=== PATIENT | female | born 1975 | race Caucasian/White ===

== ENCOUNTER 2018-02-25 21:04 | Emergency (ER) | payer OTHER ==
[2018-02-25 21:17] VITALS: BMI 33.6
--- NOTE | 2018-02-25 21:23 | PDOC ---
Rapid Medical Evaluation Chief Complaint: SIRS, Suspected/Possible Time Seen by Provider: 02/25/18 21:19 Medical Evaluation: Allergies Allergy/AdvReac Type Severity Reaction Status Date / Time thiopental [From Pentothal] Allergy Verified 02/25/18 21:18 Vital Signs Temp Pulse Resp BP Pulse Ox 101.2 F H 109 H 16 108/52 L 100 02/25/18 21:14 02/25/18 21:14 02/25/18 21:14 02/25/18 21:14 02/25/18 21:14 02/25/18 21:22 I have performed a brief in-person evaluation of this patient. The patient presents with a chief complaint of: flank pain Pertinent physical exam findings: b/l CVAT. abd SNTND I have ordered the following: labs, urine, ekg The patient will proceed to the ED for further evaluation. Discharge Disposition - Diagnosis Flank pain - Referrals Referrals: Daniel Parry MD [Primary Care Provider] - - Patient Instructions - Post Discharge Activity
[2018-02-25 21:54] LABS: BASO % 0.3 % (0-2.0); HEMATOCRIT 33.3 % (32.4-45.2); HEMOGLOBIN 11.4 GM/dL (10.7-15.3); LYMPH % 7.9 % (8-40); MCH 27.6 pg (25.7-33.7); MCHC 34.3 g/dl (32.0-36.0); MEAN CELL VOLUME 80.4 fl (80-96); MEAN PLT VOLUME 7.9 fl (7.5-11.1); MONO % 4.2 % (3.8-10.2); NEUT % 87.6 % (42.8-82.8); PLATELET COUNT 286 K/MM3 (134-434); RBC 4.13 M/mm3 (3.60-5.2); RDW 14.4 % (11.6-15.6); WHITE BLOOD COUNT 9.7 K/mm3 (4.0-10.0)
--- NOTE | 2018-02-25 22:01 | PDOC ---
History of Present Illness - General History Source: Patient Exam Limitations: No Limitations - History of Present Illness Initial Comments: 02/25/18 23:15 The patient is a 42 year old female with a past medical history of hepatic steatosis here today for evaluation of fever. The patient reports that her fever began 2 days ago and notes associated chills, bilateral lower back pain ( described as a burning sensation), headache, sore throat, lightheadedness, increase in urinary frequency, and a strange smell to her urine. She also reports that her court administrator told that her uterus prolapsed when giving 2 and years ago and was fixed. Patient denies chest pain, shortness of breath. Denies nausea, vomiting, diarrhea, abdominal pain. Allergies: thiopental PCP: Daniel Parry <Terrence Sweeney - Last Filed: 02/25/18 23:15> <Junito Lay - Last Filed: 02/26/18 01:23> - General Chief Complaint: SIRS, Suspected/Possible Stated Complaint: CHILLS FEVER urinary pain Time Seen by Provider: 02/25/18 21:19 Past History <Terrence Sweeney - Last Filed: 02/25/18 23:15> - Past Medical History COPD: No - Reproductive History (#): 3 Para: 0 Cervical CA: No Dysfunctional Uterine Bleeding: No Ectopic : No Endometrial CA: No Polycystic Ovaries: No Therapeutic (s) & number: No Tubal Ligation: No Spontaneous : 2 - Suicide/Smoking/Psychosocial Hx Smoking History: Never smoked Have you smoked in the past 12 months: No Information on smoking cessation initiated: No Hx Alcohol Use: No Drug/Substance Use Hx: No Substance Use Type: None <Junito Lay - Last Filed: 02/26/18 01:23> - Past Medical History Allergies/Adverse Reactions: Allergies Allergy/AdvReac Type Severity Reaction Status Date / Time thiopental [From Pentothal] Allergy Verified 02/25/18 21:18 Home Medications: Ambulatory Orders Vit/Iron Fum/Folic AC [ Tablet] 1 each PO DAILY 10/18/13 Cetirizine HCl [Zyrtec -] 10 mg PO DAILY 07/26/14 Ondansetron [Zofran -] 4 mg PO TID PRN #6 tablet 07/26/14 Ranitidine HCl [Zantac] 150 mg PO DAILY #10 tablet 07/26/14 Simethicone 80 mg PO AC 07/26/14 Sulfamethoxazole/Trimethoprim [Bactrim Ds -] 1 tab PO BID #20 tablet 02/26/18 Review of Systems - Review of Systems Able to Perform ROS?: Yes Comments:: 02/25/18 23:16 CONSTITUTIONAL: +fever. +chills. +lightheadedness. no fatigue EYES: No visual changes ENT: +sore throat. No ear pain CARDIOVASCULAR: No chest pain, no palpitations RESPIRATORY: No cough, no SOB GI: No abdominal pain, no nausea, no vomiting, no constipation, no diarrhea GENITOURINARY: +increase in urinary frequency. No dysuria, no hematuria MUSKULOSKELETAL: +lower back pain. no joint pain, no myalgias SKIN: No rash NEURO: +headache <Terrence Sweeney - Last Filed: 02/25/18 23:15> *Physical Exam - Vital Signs Last Vital Signs Temp Pulse Resp BP Pulse Ox 101.2 F H 109 H 16 108/52 L 100 02/25/18 21:14 02/25/18 21:14 02/25/18 21:14 02/25/18 21:14 02/25/18 21:14 - Physical Exam Comments: 02/25/18 23:18 CONSTITUTIONAL: Well-appearing; well-nourished; in no apparent distress HEAD: Normocephalic; atraumatic EYES: PERRL; EOM intact ENMT: External appears normal; normal oropharynx NECK: Supple; non-tender; no cervical lymphadenopathy CARD: Normal S1, S2; no murmurs, rubs, or gallops RESP: Normal chest excursion with respiration; breath sounds clear and equal bilaterally; no wheezes, rhonchi, or rales ABD: +mild right upper quadrant tenderness. +bilateral flank tenderness. Soft, non-distended; no palpable organomegaly, no palpable hernias EXT: Normal ROM in all four extremities; non-tender to palpation; distal pulses intact SKIN: Warm, dry, no rash NEURO: No focal neurological deficiencies. <Terrence Sweeney - Last Filed: 02/25/18 23:15> - Vital Signs Last Vital Signs Temp Pulse Resp BP Pulse Ox 101.2 F H 109 H 16 108/52 L 100 01/09/19 21:14 02/25/18 21:14 02/25/18 21:14 02/25/18 21:14 02/25/18 21:14 <Junito Lay - Last Filed: 02/26/18 01:23> Moderate Sedation - Procedure Monitoring Vital Signs: Procedure Monitoring Vital Signs Temperature 101.2 F H 02/25/18 21:14 Pulse Rate 109 H 02/25/18 21:14 Respiratory Rate 16 02/25/18 21:14 Blood Pressure 108/52 L 02/25/18 21:14 O2 Sat by Pulse Oximetry (%) 100 02/25/18 21:14 <Terrence Sweeney - Last Filed: 02/25/18 23:15> - Procedure Monitoring Vital Signs: Procedure Monitoring Vital Signs Temperature 101.2 F H 02/25/18 21:14 Pulse Rate 109 H 02/25/18 21:14 Respiratory Rate 16 02/25/18 21:14 Blood Pressure 108/52 L 02/25/18 21:14 O2 Sat by Pulse Oximetry (%) 100 02/25/18 21:14 <Junito Lay - Last Filed: 02/26/18 01:23> ED Treatment Course - LABORATORY CBC & Chemistry Diagram: 02/25/18 21:39 02/25/18 21:41 - ADDITIONAL ORDERS Additional order review: Laboratory Results 02/25/18 02/25/18 02/25/18 21:41 21:39 21:39 PT with INR INR PTT (Actin FS) VBG pH POC VBG pCO2 POC VBG pO2 Mixed VBG HCO3 Sodium 136 Potassium 4.0 Chloride 103 Carbon Dioxide 23 Anion Gap 10 BUN 13 Creatinine 0.7 Creat Clearance w eGFR > 60 Random Glucose 109 H Lactic Acid Calcium 8.2 L Total Bilirubin 0.4 AST 154 H ALT 172 H Alkaline Phosphatase 145 H Troponin I < 0.02 Total Protein 7.2 Albumin 3.4 Urine Color Urine Appearance Urine pH Ur Specific [place] Urine Protein Urine Glucose (UA) Urine Ketones Urine Blood Urine Nitrite Urine Bilirubin Urine Urobilinogen Ur Leukocyte Esterase Urine WBC (Auto) Urine RBC (Auto) Ur Epithelial Cells Urine Bacteria Urine HCG, Qual Negative 02/25/18 02/25/18 02/25/18 21:39 21:39 21:39 PT with INR INR PTT (Actin FS) VBG pH 7.37 POC VBG pCO2 42.7 POC VBG pO2 32.6 Mixed VBG HCO3 24.1 Sodium Potassium Chloride Carbon Dioxide Anion Gap BUN Creatinine Creat Clearance w eGFR Random Glucose Lactic Acid 1.4 Calcium Total Bilirubin AST ALT Alkaline Phosphatase Troponin I Total Protein Albumin Urine Color Straw Urine Appearance Clear Urine pH 6.0 Ur Specific [place] 1.004 L Urine Protein Negative Urine Glucose (UA) Negative Urine Ketones Negative Urine Blood 2+ H Urine Nitrite Negative Urine Bilirubin Negative Urine Urobilinogen Negative Ur Leukocyte Esterase 2+ H D Urine WBC (Auto) 5 Urine RBC (Auto) 1 Ur Epithelial Cells Rare Urine Bacteria Rare Urine HCG, Qual 02/25/18 21:39 PT with INR 14.80 H INR 1.25 H PTT (Actin FS) 34.8 VBG pH POC VBG pCO2 POC VBG pO2 Mixed VBG HCO3 Sodium Potassium Chloride Carbon Dioxide Anion Gap BUN Creatinine Creat Clearance w eGFR Random Glucose Lactic Acid Calcium Total Bilirubin AST ALT Alkaline Phosphatase Troponin I Total Protein Albumin Urine Color Urine Appearance Urine pH Ur Specific [place] Urine Protein Urine Glucose (UA) Urine Ketones Urine Blood Urine Nitrite Urine Bilirubin Urine Urobilinogen Ur Leukocyte Esterase Urine WBC (Auto) Urine RBC (Auto) Ur Epithelial Cells Urine Bacteria Urine HCG, Qual 02/25/18 21:39 RBC 4.13 MCV 80.4 MCHC 34.3 RDW 14.4 D MPV 7.9 Neutrophils % 87.6 H D Lymphocytes % 7.9 L D Monocytes % 4.2 Eosinophils % 0.0 D Basophils % 0.3 - Medications Given in the ED: ED Medications Discontinued Medications Generic Name Dose Route Start Last Admin Trade Name Raj PRN Reason Stop Dose Admin Acetaminophen 975 mg 02/25/18 23:01 02/25/18 23:12 Tylenol - PO 02/25/18 23:02 975 mg ONCE ONE Administration <Terrence Sweeney - Last Filed: 02/25/18 23:15> - LABORATORY CBC & Chemistry Diagram: 02/25/18 21:39 02/25/18 21:41 - ADDITIONAL ORDERS Additional order review: Laboratory Results 02/25/18 21:39 Urine HCG, Qual Negative 02/25/18 21:39 RBC 4.13 MCV 80.4 MCHC 34.3 RDW 14.4 D MPV 7.9 Neutrophils % 87.6 H D Lymphocytes % 7.9 L D Monocytes % 4.2 Eosinophils % 0.0 D Basophils % 0.3 <Junito Lay - Last Filed: 02/26/18 01:23> Medical Decision Making - Medical Decision Making 02/26/18 01:00 Patient is morbidly obese 42-year-old female who presents to the ER with atraumatic bilateral flank and lower back pain, fever, chills and urinary frequency with urgency. Patient is noted to be febrile and tachycardic and initial evaluation. There is no evidence of meningismus. Lungs are clear. Chest x-ray reveals no evidence of infiltrate or effusion. Patient's influenza negative. CBC reveals no significant leukocytosis, neutrophilia is noted. CMP reveals elevated AST/ALT and alkaline phosphatase consistent with patient's history of hepatic steatosis. Bilateral renal and right upper quadrant ultrasound reveals no evidence of hydronephrosis or cholelithiasis. Hepatomegaly is noted. Urinalysis reveals 2+ leuk esterase and 5 WBCs per high- power field. I suspect acute pyelonephritis. Patient is being hydrated and will receive 2 g of IV ceftriaxone. Patient tolerates by mouth and is safe for outpatient treatment with by mouth Bactrim twice a day for 10 days. <Junito Lay - Last Filed: 02/26/18 01:23> *DC/Admit/Observation/Transfer - Attestations Scribe Attestion: 02/25/18 23:20 Documentation prepared by GWENDOLYN Coppola, acting as product manager medical device for Junito Lay MD. <Terrence Sweeney - Last Filed: 02/25/18 23:15> - Attestations Physician Attestion: 02/26/18 00:56 The documentation was prepared by the scribe under my direct supervision. I have reviewed the documentation which correctly represents the findings, medical decision-making and critical action taken by me. <Junito Lay - Last Filed: 02/26/18 01:23> Diagnosis at time of Disposition: Flank pain, Pyelonephritis - Discharge Dispostion Disposition: HOME Condition at time of disposition: Stable - Referrals Referrals: Daniel Parry MD [Primary Care Provider] - - Patient Instructions Printed Discharge Instructions: DI for Fever (Symptom) -- Adult, DI for Kidney Infection Print Language: [place] - Post Discharge Activity
[2018-02-25 22:03] LABS: VENOUS PC02 42.7 mmHg (38-52); VENOUS PH 7.37 (7.32-7.42); VENOUS PO2 32.6 mmHg (28-48)
[2018-02-25 22:04] LABS: URINE APPEARANCE CLEAR; URINE BILIRUBIN NEGATIVE (<2.0 mg/dL); URINE COLOR STRAW; URINE GLUCOSE (UA) NEGATIVE (NEGATIVE); URINE KETONE NEGATIVE (NEGATIVE); URINE LEUK ESTERASE 2+ (NEGATIVE); URINE NITRITE NEGATIVE (NEGATIVE); URINE PROTEIN NEGATIVE (NEGATIVE); URINE UROBILINOGEN NEGATIVE mg/dL (0.2-1.0)
[2018-02-25 22:05] LABS: EPI CELLS RARE /HPF (FEW); URINE BACTERIA RARE /hpf (NONE SEEN)
[2018-02-25 22:11] LABS: INR 1.25 (0.83-1.09); PROTHROMBIN TIME (PATIENT) 14.8 SEC (9.7-13.0)
[2018-02-25 22:14] LABS: ACTIVATED PTT 34.8 SECONDS (25.2-36.5)
[2018-02-25 22:32] LABS: ALBUMIN 3.4 g/dl (3.4-5.0); ALK PHOS 145 U/L (45-117); ANION GAP 10 MMOL/L (8-16); BILIRUBIN,TOTAL 0.4 mg/dL (0.2-1); BLOOD UREA NITROGEN 13 mg/dL (7-18); CALCIUM 8.2 mg/dL (8.5-10.1); CHLORIDE 103 mmol/L (98-107); CO2 23 mmol/L (21-32); CREATININE 0.7 mg/dL (0.55-1.3); GLUCOSE,RANDOM 109 mg/dL (74-106); SGOT/AST 154 U/L (15-37); SGPT/ALT 172 U/L (13-61); SODIUM 136 mmol/L (136-145); TOT PROT 7.2 g/dl (6.4-8.2)
[2018-02-25] MEDS ORDERED: SODIUM CHLORIDE 1,000 ML IV STA (23:01)
[2018-02-25] MEDS ORDERED: ACETAMINOPHEN 500 MG TABLET (FP) PO ONE (23:01)
[2018-02-25] MEDS ORDERED: ACETAMINOPHEN 325 MG TABLET (FP) ONE (23:03)
[2018-02-26] MEDS ORDERED: CEFTRIAXONE 2,000 MG in DEXTROSE 5%-WATER - 50 ML IVPB ONE (00:46)
[2018-02-26] MEDS ORDERED: CEFTRIAXONE 2 GM/100 ML BAG IVPB ONE (01:01)
[2018-02-26 01:22] VITALS: PULSE 84; TEMP 98.6
[2018-02-26 02:38] VITALS: BP 110/66
--- NOTE | 2018-02-26 12:46 | EKG ---
Test Reason : Blood Pressure : / mmHG Vent. Rate : 103 BPM Atrial Rate : 103 BPM P-R Int : 136 ms QRS Dur : 078 ms QT Int : 320 ms P-R-T Axes : 062 049 050 degrees QTc Int : 419 ms SINUS TACHYCARDIA OTHERWISE NORMAL ECG NO PREVIOUS ECGS AVAILABLE Confirmed by LONG HERNDON MD ([id number]) on 02/26/2018 12:45:47 PM Referred By: Confirmed By:LONG HERNDON MD
== END 2018-02-26 02:49 | disposition home or self-care (01) ==
LOC: JER 21:04
PROC: 3E0337Z Introduction of Electrolytic and Water Balance Substance into Peripheral Vein, Percutaneous Approach (ICD-10-PCS; principal; 2018-02-25)
PROC: 3E03329 Introduction of Other Anti-infective into Peripheral Vein, Percutaneous Approach (ICD-10-PCS; 2018-02-25)
DX: N12 Tubulo-interstitial nephritis, not specified as acute or chronic (principal)
CPT/HCPCS: 36415; 71046-TC-FY; 76705-TC; 76775-TC; 80053; 81003; 81015; 82803; 83605; 84484; 84703; 85025; 85610; 85730; 87040; 87086; 87804; 93005; 93010; 99283-25; J7030

== ENCOUNTER 2018-04-22 04:55 | Day surgery (SDC) | payer OTHER ==
[2018-04-20 15:56] VITALS: BMI 33.2
[2018-04-22] MEDS ORDERED: LACTATED RINGERS SOLUTION 1,000 ML IV SCH ×2 (07:15→12:45)
--- NOTE | 2018-04-22 07:15 | HP ---
History & Physical Update - History History: No Change - Physical Physical: No Change - Assessment Assessment: No Change - Plan Plan: No Change (Agree with H&P from 04/20/18)
[2018-04-22] MEDS ORDERED: PROPOFOL 20 ML ONE ×2 (11:47)
[2018-04-22] MEDS ORDERED: SUCCINYLCHOLINE CHLORIDE 200 MG/10 ML VIAL ONE (11:47)
[2018-04-22] MEDS ORDERED: MIDAZOLAM HCL 2 MG/2 ML SINGLE DOSE VIAL ONE (12:06)
--- NOTE | 2018-04-22 12:39 | OP ---
Operative Note - Note: Operative Date: 04/22/18 Pre-Operative Diagnosis: AUB, cervical polyp noted on ultrasound Operation: hyteroscopy, D&C, cervical polypectomy (external cervical polyp) Findings: ectocervical polyp at the cervicovaginal junction no intracavitary lesions noted Post-Operative Diagnosis: Same as Pre-op Surgeon: Marlen Paige Anesthesiologist/YARDING ENGINEER: Juan F Marsh Anesthesia: General (with LMA) Specimens Removed: endometrial curettings. (ecto)cervical polyp Estimated Blood Loss (mls): 10 Operative Report Dictated: Yes
[2018-04-22] MEDS ORDERED: ONDANSETRON 4 MG/2 ML VIAL IVPUSH PRN (12:41)
[2018-04-22] MEDS ORDERED: oxyCODONE HCL 5 MG TABLET PO PRN (12:41)
[2018-04-22] MEDS ORDERED: ONDANSETRON 4 MG/2 ML VIAL ONE (14:24)
[2018-04-22 14:51] VITALS: TEMP 98.1
[2018-04-22 17:36] VITALS: BP 114/69; PULSE 76
--- NOTE | 2018-04-23 17:46 | PATH ---
Surgical Pathology Report Patient Name: AMY MEJIA [facility]. Rec. #: [id number] /Age/Gender: 1975 (Age: 42) / F Account: [id number] Location: [facility] SURGICAL Taken: 04/22/2018 Received: 04/22/2018 Reported: 04/23/2018 Physicians: Marlen Paige M.D. Specimen(s) Received A: ENDOMETRIAL CURETTINGS B: CERVICAL POLYP Clinical History Abnormal uterine bleeding Final Diagnosis A. ENDOMETRIAL CURETTINGS, DILATION AND CURETTAGE: FRAGMENTS OF SECRETORY ENDOMETRIUM. B. 'CERVICAL POLYP', BIOPSY: POLYPOID FRAGMENT OF BENIGN CERVICAL SQUAMOUS MUCOSA AND UNDERLYING STROMA WITH CAUTERY ARTIFACT. Electronically Signed Paige Murillo M.D. Gross Description A. Received in formalin labeled "endometrial curetting," is a 1.5 x 1.5 x 0.2 cm aggregate of shaw-pink soft tissue fragments. The formalin is filtered and the specimen is entirely submitted in one cassette. B. Received in formalin labeled "cervical polyp," is a 1.0 cm in greatest dimension shaw, polypoid portion of soft tissue. The specimen is submitted in toto in one cassette. 04/22/2018 saudi04/22/2018
--- NOTE | 2018-04-30 10:49 | OP ---
DATE OF OPERATION: 04/22/2018 PREOPERATIVE DIAGNOSIS: Abnormal uterine bleeding, cervical polyp. POSTOPERATIVE DIAGNOSIS: Abnormal uterine bleeding, cervical polyp. PROCEDURE: Dilation and curettage and cervical polypectomy of external cervical polyp. FINDINGS: SURGEON: Marlen Paige DO ANESTHESIA: LMA ESTIMATED BLOOD LOSS: 10 mL. FINDINGS: Ectocervical polyp at the cervicovaginal junction. No intracavitary or intra uterine lesions noted. SURGEON: Marlen Paige DO ANESTHESIA: General with LMA by Dr. Juan F Marsh. COMPLICATIONS: None. ESTIMATED BLOOD LOSS: 10 mL. SPECIMENS: Endometrial curettings and ectocervical polyp. Sponge and instrument count correct. DISPOSITION: Stable to PACU. BRIEF HISTORY: The patient is a 42-year-old female who had been seen in the office with complaints of abnormal uterine bleeding. Upon ultrasound examination was found to have a possible endocervical polyp. The patient was counseled on her options and elected to undergo a hysteroscopy and resection of the polyp. Consents for the procedure were signed in the office. The patient was then admitted to [facility] on April 22, 2018. Consents were reconfirmed. She was then taken back to the operating room and given general anesthesia with LMA by Dr. Juan F Marsh and placed in the dorsal lithotomy position. A hard time-out was performed. A speculum was placed inside the vagina. The anterior lip of the cervix was grasped with a tenaculum, and the cervix was dilated to accommodate a diagnostic hysteroscope, which was advanced to the fundus of the uterus. Bilateral tubal ostia were noted. No intracavitary lesions were appreciated. No intracervical lesions were appreciated, and a sharp dilation and curettage was performed, and endometrial curettings were sent to Pathology at this time. Upon further inspection of the cervix and vagina, there was a polyp at the cervicovaginal junction outside of the uterine cavity, which was excised and sent to Pathology for further evaluation. Excellent hemostasis was achieved after excision using the Bovie cautery. Minimal bleeding was noted from the cervical os. All instruments were removed from the vagina and sponge and instrument counts were reported to be correct. The patient was awoken from anesthesia and recovering in stable condition after the procedure. MARLEN PAIGE DO /[id number] MTDD
== END 2018-04-22 16:20 | disposition home or self-care (01) ==
LOC: JASU-SURG 04:55
PROVIDERS: ATTEND Obstetrics & Gynecology
PROC: 0UJD8ZZ Inspection of Uterus and Cervix, Via Natural or Artificial Opening Endoscopic (ICD-10-PCS; 2018-04-22)
PROC: 0UBC7ZZ Excision of Cervix, Via Natural or Artificial Opening (ICD-10-PCS; principal; 2018-04-22 11:30)
PROC: 0UDB7ZX Extraction of Endometrium, Via Natural or Artificial Opening, Diagnostic (ICD-10-PCS; 2018-04-22 11:30)
DX: N93.9 Abnormal uterine and vaginal bleeding, unspecified (principal); N84.1 Polyp of cervix uteri
CPT/HCPCS: 88305-TC; 94760

== ENCOUNTER 2018-06-01 15:05 | Emergency (ER) | payer OTHER ==
--- NOTE | 2018-06-01 15:20 | PDOC ---
Rapid Medical Evaluation Time Seen by Provider: 06/01/18 15:19 Medical Evaluation: Allergies Allergy/AdvReac Type Severity Reaction Status Date / Time thiopental [From Pentothal] Allergy Verified 02/25/18 21:18 06/01/18 15:19 I have performed a brief in-person evaluation of this patient. The patient presents with a chief complaint of: atraumatic lower back Pertinent physical exam findings: No bony tenderness. I have ordered the following: urine The patient will proceed to the ED for further evaluation. Discharge Disposition - Diagnosis Back pain - Referrals - Patient Instructions - Post Discharge Activity
[2018-06-01 15:21] VITALS: BP 132/96; PULSE 88; TEMP 98.7; BMI 33.2
[2018-06-01 16:11] LABS: PH,URINE 6.5 (5.0-8.0); URINE APPEARANCE CLEAR; URINE BILIRUBIN NEGATIVE (NEGATIVE); URINE COLOR YELLOW; URINE GLUCOSE (UA) NEGATIVE (NEGATIVE); URINE KETONE NEGATIVE (NEGATIVE); URINE LEUK ESTERASE NEGATIVE (NEGATIVE); URINE NITRITE NEGATIVE (NEGATIVE); URINE PROTEIN NEGATIVE (NEGATIVE); URINE UROBILINOGEN 0.2 mg/dL (0.2-1.0)
[2018-06-01 16:13] LABS: HCG,QUALITATIVE URINE Negative
[2018-06-01] MEDS ORDERED: KETOROLAC TROMETHAMINE 60 MG/2 ML VIAL IM ONE (16:16)
--- NOTE | 2018-06-01 16:19 | PDOC ---
History of Present Illness - General Chief Complaint: Back Pain Stated Complaint: LOWER BACK PAIN Time Seen by Provider: 06/01/18 15:19 - History of Present Illness Initial Comments: 06/01/18 16:17 42-year-old female without comorbidities presents for evaluation of lower back pain with posterior lateral by leg radicular symptoms to the levels of the thighs. No loss of bowel or bladder function or saddle paresthesias. Systemic symptoms. Past History - Past Medical History Allergies/Adverse Reactions: Allergies Allergy/AdvReac Type Severity Reaction Status Date / Time thiopental [From Pentothal] Allergy Verified 06/01/18 15:21 Home Medications: Ambulatory Orders Cyclobenzaprine HCl [Flexeril 10 mg] 10 mg PO HS PRN #10 tablet 06/01/18 Methylprednisolone [Medrol Dose Lamin] 4 mg PO ASDIR #21 tablet 06/01/18 Anemia: No Asthma: No Cancer: No Cardiac Disorders: No CVA: No COPD: No CHF: No Dementia: No Diabetes: No GI Disorders: No Disorders: Yes (POLYNEPHRITIS) HTN: No Hypercholesterolemia: No Liver Disease: No Seizures: No Thyroid Disease: No - Reproductive History (#): 3 Para: 0 Cervical CA: No Dysfunctional Uterine Bleeding: No Ectopic : No Endometrial CA: No Polycystic Ovaries: No Therapeutic (s) & number: No Tubal Ligation: No Spontaneous : 2 - Suicide/Smoking/Psychosocial Hx Smoking History: Never smoked Have you smoked in the past 12 months: No Information on smoking cessation initiated: No Hx Alcohol Use: No Drug/Substance Use Hx: No Substance Use Type: None Review of Systems - Review of Systems Constitutional: No: Fever Musculoskeletal: Yes: Back Pain Neurological: Yes: See HPI, Tingling *Physical Exam - Vital Signs Last Vital Signs Temp Pulse Resp BP Pulse Ox 98.7 F 88 17 132/96 98 06/01/18 15:19 06/01/18 15:19 06/01/18 15:19 06/01/18 15:19 06/01/18 15:19 - Physical Exam Comments: 06/01/18 16:17 Lumbar spine skin color and temperature are normal. Range of motion is decreased. There is tenderness about the right left paralumbar musculature. No midline tenderness. 5 out of 5 strength in bilateral lower extremities without gross sensorimotor deficits. Positive straight leg raise test bilaterally she is neurovascularly intact. Thighs and calves are soft and nontender. ED Treatment Course - ADDITIONAL ORDERS Additional order review: Laboratory Results 06/01/18 16:00 Urine Color Yellow Urine Appearance Clear Urine pH 6.5 Ur Specific [place] 1.014 Urine Protein Negative Urine Glucose (UA) Negative Urine Ketones Negative Urine Blood Negative Urine Nitrite Negative Urine Bilirubin Negative Urine Urobilinogen 0.2 Ur Leukocyte Esterase Negative Urine HCG, Qual Negative Medical Decision Making - Medical Decision Making 06/01/18 16:18 Toradol in the ER for lumbar radiculopathy. Begin Medrol Dosepak tomorrow with Flexeril and follow-up with orthospine *DC/Admit/Observation/Transfer Diagnosis at time of Disposition: Back pain, Lumbar radiculopathy - Discharge Dispostion Disposition: HOME Condition at time of disposition: Stable Decision to Admit order: No - Referrals Referrals: Daniel Parry MD [Primary Care Provider] - Parmjit Stone MD [Staff Physician] - - Patient Instructions Printed Discharge Instructions: Lumbar Radiculopathy, DI for Lumbar Radiculopathy Additional Instructions: Please begin the Medrol Dosepak tomorrow morning as directed. The muscle relaxers one tablet before bedtime and will make you sleepy. He may begin that this evening. Do not take any Advil Aleve ibuprofen or Motrin while on the Medrol Dosepak. He may take Tylenol as directed if you need supplemental pain medication. Please follow-up with orthopedic spine surgery in 1-2 days for further evaluation and treatment options and return to the emergency room should symptoms worsen. - Post Discharge Activity
== END 2018-06-01 16:45 | disposition home or self-care (01) ==
LOC: JERFT 15:05
PROC: 3E0233Z Introduction of Anti-inflammatory into Muscle, Percutaneous Approach (ICD-10-PCS; principal; 2018-06-01)
DX: M54.16 Radiculopathy, lumbar region (principal)
CPT/HCPCS: 81003; 84703; 87086; 96372; 99281-25

== ENCOUNTER 2018-12-24 08:22 | Day surgery (SDC) | payer OTHER ==
[2018-12-23 11:18] VITALS: BMI 33.2
[2018-12-24 10:17] VITALS: TEMP 98.2
[2018-12-24 11:23] VITALS: BP 109/56; PULSE 64
== END 2018-12-24 11:24 | disposition home or self-care (01) ==
LOC: JASU-ENDO 08:22
PROVIDERS: ATTEND Internal Medicine Gastroenterology
PROC: 0DJD8ZZ Inspection of Lower Intestinal Tract, Via Natural or Artificial Opening Endoscopic (ICD-10-PCS; principal; 2018-12-24 08:45)
DX: D50.9 Iron deficiency anemia, unspecified (principal); K57.30 Diverticulosis of large intestine without perforation or abscess without bleeding; K64.8 Other hemorrhoids
CPT/HCPCS: 81025

== ENCOUNTER 2019-01-05 08:23 | Day surgery (SDC) | payer OTHER ==
[2019-01-05 07:33] VITALS: BMI 33.2
[2019-01-05 09:36] VITALS: TEMP 98
[2019-01-05 11:26] VITALS: BP 105/67; PULSE 77
--- NOTE | 2019-01-06 13:25 | PATH ---
Surgical Pathology Report Patient Name: AMY MEJIA [facility]. Rec. #: [id number] /Age/Gender: 1975 (Age: 43) / F Account: [id number] Location: [facility] Taken: 01/05/2019 Received: 01/05/2019 Reported: 01/06/2019 Physicians: Geoff Baptiste D.O. Specimen(s) Received A: ANTRUM NODULE B: STOMACH BODY Clinical History Anemia, unspecified Postoperative diagnosis: Gastritis Final Diagnosis A. STOMACH, ANTRUM, NODULE, BIOPSY: POLYPOID GASTRIC ANTRAL MUCOSA WITH SEVERE CHRONIC ACTIVE GASTRITIS. IMMUNOHISTOCHEMICAL STAIN FOR H. PYLORI IS POSITIVE (MANY). B. STOMACH, BODY, BIOPSY: GASTRIC BODY MUCOSA WITH SEVERE CHRONIC ACTIVE GASTRITIS. IMMUNOHISTOCHEMICAL STAIN FOR H. PYLORI IS POSITIVE (NUMEROUS). Electronically Signed Paige Murillo M.D. Gross Description A. Received in formalin, labeled "antrum nodule" is a shaw, irregular portion of soft tissue measuring 0.4 cm. in greatest dimension. The specimen is submitted in toto in one cassette. B. Received in formalin, labeled "body of stomach" are 2 shaw, irregular portions of soft tissue measuring 0.2 and 0.5 cm. in greatest dimension. The specimens are submitted in toto in one cassette. 01/05/2019 saudi01/05/2019
== END 2019-01-05 11:00 | disposition home or self-care (01) ==
LOC: JASU-ENDO 08:23
PROVIDERS: ATTEND Internal Medicine Gastroenterology
PROC: 0DB68ZX Excision of Stomach, Via Natural or Artificial Opening Endoscopic, Diagnostic (ICD-10-PCS; principal; 2019-01-05 09:00)
DX: D50.9 Iron deficiency anemia, unspecified (principal); K31.7 Polyp of stomach and duodenum; K29.50 Unspecified chronic gastritis without bleeding
CPT/HCPCS: 81025; 88305-TC; 88342-TC

== ENCOUNTER 2019-12-21 19:42 | Emergency (ER) | payer OTHER ==
[2019-12-21 20:00] VITALS: BP 113/69; PULSE 92; TEMP 98.6; BMI 34.3
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
== END 2019-12-21 20:29 | disposition home or self-care (01) ==
LOC: JER 19:42 → JERFT 19:42
DX: S16.1XXA Strain of muscle, fascia and tendon at neck level, initial encounter (principal); S29.012A Strain of muscle and tendon of back wall of thorax, initial encounter; S80.01XA Contusion of right knee, initial encounter
CPT/HCPCS: 99283-25

== ENCOUNTER 2019-12-31 15:28 | Emergency (ER) | payer OTHER ==
[2019-12-31 15:53] VITALS: BP 127/62; PULSE 92; TEMP 97.8; BMI 33.2
== END 2019-12-31 16:54 | disposition home or self-care (01) ==
LOC: JERFT 15:28
DX: S16.1XXA Strain of muscle, fascia and tendon at neck level, initial encounter (principal); M25.511 Pain in right shoulder
CPT/HCPCS: 99283-25

== ENCOUNTER 2020-06-27 08:37 | Day surgery (SDC) | payer OTHER ==
[2020-06-27] MEDS ORDERED: FERRIC CARBOXYMALTOSE 750 MG in SODIUM CHLORIDE 250 ML IVPB ONE (09:30)
[2020-06-27 10:37] VITALS: TEMP 98.7
[2020-06-27 10:59] VITALS: BP 110/54; PULSE 70
== END 2020-06-27 15:54 | disposition home or self-care (01) ==
LOC: FINFUSION 08:37 → FM/S 08:38 → FINFUSION 15:54
PROVIDERS: ATTEND Family Medicine
PROC: 3E033GC Introduction of Other Therapeutic Substance into Peripheral Vein, Percutaneous Approach (ICD-10-PCS; principal; 2020-06-27)
DX: E61.1 Iron deficiency (principal)
CPT/HCPCS: 96365; J1439

== ENCOUNTER 2020-07-05 13:33 | Day surgery (SDC) | payer OTHER ==
[2020-07-05] MEDS ORDERED: FERRIC CARBOXYMALTOSE 750 MG in SODIUM CHLORIDE 250 ML IVPB ONE (14:15)
[2020-07-05 14:59] VITALS: PULSE 74; TEMP 98.2
[2020-07-05 15:40] VITALS: BP 110/72
== END 2020-07-05 16:01 | disposition home or self-care (01) ==
LOC: FINFUSION 13:33 → FM/S 13:39 → FINFUSION 16:01
PROVIDERS: ATTEND Family Medicine
PROC: 3E033GC Introduction of Other Therapeutic Substance into Peripheral Vein, Percutaneous Approach (ICD-10-PCS; principal; 2020-07-05)
DX: E61.1 Iron deficiency (principal)
CPT/HCPCS: 84703; 96365; J1439

== ENCOUNTER 2020-12-11 06:07 | Emergency (ER) | payer OTHER ==
[2020-12-11 06:48] VITALS: BP 114/67; PULSE 82; TEMP 99.1; BMI 33.2
== END 2020-12-11 08:15 | disposition home or self-care (01) ==
LOC: JER 06:07
DX: R05.1 Acute cough (principal); J02.9 Acute pharyngitis, unspecified; J06.9 Acute upper respiratory infection, unspecified
CPT/HCPCS: 99282-25

== ENCOUNTER 2021-04-25 11:13 | Day surgery (SDC) | payer OTHER ==
[2021-04-25] MEDS ORDERED: FERRIC CARBOXYMALTOSE 750 MG in SODIUM CHLORIDE 250 ML IVPB ONE (12:45)
[2021-04-25 14:25] VITALS: BP 104/60; PULSE 74; TEMP 98.2
== END 2021-04-25 15:21 | disposition home or self-care (01) ==
LOC: FINFUSION 11:13 → FM/S 11:27 → FINFUSION 15:21
PROVIDERS: ATTEND Family Medicine
PROC: 3E033GC Introduction of Other Therapeutic Substance into Peripheral Vein, Percutaneous Approach (ICD-10-PCS; principal; 2021-04-25)
DX: D50.9 Iron deficiency anemia, unspecified (principal)
CPT/HCPCS: 96365; J1439

== ENCOUNTER 2021-05-02 11:12 | Day surgery (SDC) | payer OTHER ==
[2021-05-02] MEDS ORDERED: FERRIC CARBOXYMALTOSE 750 MG in SODIUM CHLORIDE 250 ML IVPB ONE (12:30)
[2021-05-02 13:17] VITALS: BP 115/65; PULSE 68; TEMP 98
== END 2021-05-02 14:08 | disposition home or self-care (01) ==
LOC: FINFUSION 11:12 → FM/S 11:13 → FINFUSION 14:08
PROVIDERS: ATTEND Family Medicine
PROC: 3E033GC Introduction of Other Therapeutic Substance into Peripheral Vein, Percutaneous Approach (ICD-10-PCS; principal; 2021-05-02)
DX: D50.9 Iron deficiency anemia, unspecified (principal)
CPT/HCPCS: 96365; J1439

== ENCOUNTER 2021-07-09 04:36 | Inpatient (IN) | payer OTHER ==
[2021-07-04 11:01] VITALS: BMI 35.1
[2021-07-09] MEDS ORDERED: ceFAZolin SODIUM 1 GM VIAL ONE ×3 (06:42→22:08)
[2021-07-09] MEDS ORDERED: GABAPENTIN 300 MG CAPSULE PO ONE (07:30)
[2021-07-09] MEDS ORDERED: ACETAMINOPHEN 1000 MG/100 ML BAG IVPB ONE ×3 (07:30→11:47)
[2021-07-09] MEDS ORDERED: CEFAZOLIN 2 GM in DEXTROSE 5%-WATER - 100 ML IVPB ONE (07:30)
[2021-07-09] MEDS ORDERED: TRANEXAMIC ACID 1000 MG/10 ML VIAL IVPUSH ONE (07:30)
[2021-07-09] MEDS ORDERED: PHENAZOPYRIDINE HCL 100 MG TABLET (FP) PO ONE (07:30)
[2021-07-09] MEDS ORDERED: ceFAZolin SODIUM 1 GM VIAL IVPB ONE (08:21)
[2021-07-09] MEDS ORDERED: ONDANSETRON 4 MG/2 ML VIAL IVPUSH PRN ×3 (10:12→11:47)
[2021-07-09] MEDS ORDERED: PROMETHAZINE HCL 25 MG/1 ML VIAL IVPUSH PRN ×2 (10:12→11:47)
[2021-07-09] MEDS ORDERED: oxyCODONE HCL 5 MG TABLET PO PRN ×7 (10:12→11:47)
[2021-07-09] MEDS ORDERED: KETOROLAC TROMETHAMINE 30 MG/1 ML VIAL IVPUSH SCH ×2 (10:15→16:15)
[2021-07-09] MEDS ORDERED: BISACODYL 5 MG TABLET.DR (FP) PO PRN ×2 (10:21→11:47)
[2021-07-09] MEDS ORDERED: ACETAMINOPHEN 325 MG TABLET (FP) PO PRN ×3 (10:21→18:00)
[2021-07-09] MEDS ORDERED: DOCUSATE SODIUM 100 MG CAPSULE (FP) PO PRN ×2 (10:21→11:47)
[2021-07-09] MEDS ORDERED: SIMETHICONE 80 MG TAB.CHEW (FP) PO PRN (10:21)
[2021-07-09] MEDS ORDERED: IBUPROFEN 800 MG/8 ML IJ IVPB SCH (10:30)
[2021-07-09] MEDS ORDERED: FENTANYL CITRATE/PF 50 MCG/ML VIAL ONE (10:35)
[2021-07-09] MEDS ORDERED: ACETAMINOPHEN INJECTION 100 ML IVPB ONE (10:51)
[2021-07-09] MEDS ORDERED: ZOLPIDEM TARTRATE 5 MG TABLET PO ONE ×2 (11:00→22:00)
[2021-07-09] MEDS: SODIUM CHLORIDE 1,000 ML IV SCH (12:55)
[2021-07-09] MEDS ORDERED: DEXTROSE 5%-WATER - 50 ML IVPB ONE ×2 (16:25→22:08)
[2021-07-09] MEDS: CEFAZOLIN 1 GM in DEXTROSE 5%-WATER - 1 GM/50 ML IVPB IVPB SCH ×2 (16:39→23:05)
[2021-07-09] MEDS: IBUPROFEN 800 MG/8 ML IJ IVPB SCH (17:42)
[2021-07-09] MEDS ORDERED: CEFAZOLIN 1 GM/D5W 1 GM/50 ML BAG IVPB SCH (18:00)
[2021-07-09 18:01] LABS: HEMATOCRIT 33.4 % (32.4-45.2); HEMOGLOBIN 11.3 GM/dL (10.7-15.3); MCH 29.1 pg (25.7-33.7); MCHC 33.8 g/dl (32.0-36.0); MEAN CELL VOLUME 85.8 fl (80-96); MEAN PLT VOLUME 7.6 fl (7.5-11.1); PLATELET COUNT 293 10^3/uL (134-434); RBC 3.89 M/mm3 (3.60-5.2); RDW 17.7 % (11.6-15.6)
[2021-07-09 18:22] LABS: CALCIUM 8.3 mg/dL (8.5-10.1)
[2021-07-09 18:26] LABS: CREATININE 0.7 mg/dL (0.55-1.3)
[2021-07-09] MEDS: oxyCODONE HCL 5 MG TABLET PO PRN (20:27)
[2021-07-09] MEDS: SIMETHICONE 80 MG TAB.CHEW (FP) PO PRN (20:29)
[2021-07-10] MEDS: IBUPROFEN 800 MG/8 ML IJ IVPB SCH ×3 (01:39→18:35)
[2021-07-10] MEDS: oxyCODONE HCL 5 MG TABLET PO PRN (06:33)
[2021-07-10 07:53] LABS: HEMATOCRIT 30.4 % (32.4-45.2); HEMOGLOBIN 10.1 GM/dL (10.7-15.3); MCH 28.6 pg (25.7-33.7); MCHC 33.1 g/dl (32.0-36.0); MEAN CELL VOLUME 86.4 fl (80-96); PLATELET COUNT 263 10^3/uL (134-434); RBC 3.52 M/mm3 (3.60-5.2); RDW 17.7 % (11.6-15.6); WHITE BLOOD COUNT 8.9 K/mm3 (4.0-10.0)
[2021-07-10 08:14] LABS: CALCIUM 8.3 mg/dL (8.5-10.1)
[2021-07-10 08:15] LABS: BLOOD UREA NITROGEN 8.4 mg/dL (7-18)
[2021-07-10 08:18] LABS: CREATININE 0.5 mg/dL (0.55-1.3)
[2021-07-10] MEDS ORDERED: ENOXAPARIN NA (PORCINE) 40 MG/0.4 ML DISP.SYRIN SQ SCH (10:00)
[2021-07-10] MEDS: ENOXAPARIN NA (PORCINE) 40 MG/0.4 ML DISP.SYRIN SQ SCH (10:01)
[2021-07-10] MEDS: SIMETHICONE 80 MG TAB.CHEW (FP) PO PRN (10:01)
[2021-07-10] MEDS: SODIUM CHLORIDE 1,000 ML IV SCH (19:11)
[2021-07-11] MEDS: IBUPROFEN 800 MG/8 ML IJ IVPB SCH ×2 (02:54→10:16)
[2021-07-11 08:57] LABS: BASO % 0.7 % (0-2.0); EOS % 1.4 % (0-4.5); HEMATOCRIT 30.5 % (32.4-45.2); HEMOGLOBIN 10.1 GM/dL (10.7-15.3); LYMPH % 38.2 % (8-40); MCH 29.1 pg (25.7-33.7); MCHC 33.2 g/dl (32.0-36.0); MEAN CELL VOLUME 87.6 fl (80-96); MEAN PLT VOLUME 7.9 fl (7.5-11.1); MONO % 5.3 % (3.8-10.2); NEUT % 54.4 % (42.8-82.8); PLATELET COUNT 276 10^3/uL (134-434); RBC 3.48 M/mm3 (3.60-5.2); RDW 17.5 % (11.6-15.6); WHITE BLOOD COUNT 6.3 K/mm3 (4.0-10.0)
[2021-07-11 10:13] LABS: CALCIUM 8.2 mg/dL (8.5-10.1)
[2021-07-11 10:14] LABS: BLOOD UREA NITROGEN 8.3 mg/dL (7-18)
[2021-07-11 10:16] LABS: CREATININE 0.5 mg/dL (0.55-1.3)
[2021-07-11] MEDS: SIMETHICONE 80 MG TAB.CHEW (FP) PO PRN (10:16)
[2021-07-11] MEDS: ENOXAPARIN NA (PORCINE) 40 MG/0.4 ML DISP.SYRIN SQ SCH (10:22)
[2021-07-11 13:34] VITALS: BP 110/72; PULSE 74; TEMP 98.2
== END 2021-07-11 13:20 | disposition home or self-care (01) | DRG 519 ==
LOC: JASUSAT 04:36 → J3W 13:16 → JASUSAT 13:17 → J3W 13:17
PROVIDERS: ADMIT Obstetrics & Gynecology; ATTEND Obstetrics & Gynecology
PROC: 0DBW4ZZ Excision of Peritoneum, Percutaneous Endoscopic Approach (ICD-10-PCS; 2021-07-09)
PROC: 8E0W8CZ Robotic Assisted Procedure of Trunk Region, Via Natural or Artificial Opening Endoscopic (ICD-10-PCS; 2021-07-09)
PROC: 0UT94ZZ Resection of Uterus, Percutaneous Endoscopic Approach (ICD-10-PCS; principal; 2021-07-09 07:30)
PROC: 0UT74ZZ Resection of Bilateral Fallopian Tubes, Percutaneous Endoscopic Approach (ICD-10-PCS; 2021-07-09 07:30)
DX: D25.9 Leiomyoma of uterus, unspecified (principal); K66.8 Other specified disorders of peritoneum; R93.89 Abnormal findings on diagnostic imaging of other specified body structures
CPT/HCPCS: 36415; 80048; 81025; 82962; 85025; 85027; 86850; 86900; 86901; 88302-TC; 88304-TC; 88307-TC; 93005; 93010; 94010; 94760

== ENCOUNTER 2023-03-01 08:09 | Emergency (ER) | payer OTHER ==
[2023-03-01 08:21] VITALS: BP 111/76; PULSE 75; RESP 18; TEMP 97.6; BMI 35.9
[2023-03-01 09:24] LABS: EPI CELLS 22 /uL (0-25.1); HYALINE CASTS 1 /uL (0-3.1); PH,URINE 5.5 (5.0-8.0); URINE APPEARANCE CLEAR; URINE BACTERIA 76 /uL (0-1359); URINE BILIRUBIN NEGATIVE (NEGATIVE); URINE COLOR YELLOW; URINE GLUCOSE (UA) NEGATIVE (NEGATIVE); URINE KETONE NEGATIVE (NEGATIVE); URINE LEUK ESTERASE NEGATIVE (NEGATIVE); URINE NITRITE NEGATIVE (NEGATIVE); URINE PROTEIN NEGATIVE (NEGATIVE); URINE RBC 26 /uL (0-23.9); URINE UROBILINOGEN 0.2 mg/dL (0.2-1.0); URINE WBC 5 /uL (0-25.8)
== END 2023-03-01 10:48 | disposition home or self-care (01) ==
LOC: JER 08:09
DX: M54.50 Low back pain, unspecified (principal); R30.0 Dysuria; R39.15 Urgency of urination; M54.16 Radiculopathy, lumbar region; N30.00 Acute cystitis without hematuria
CPT/HCPCS: 81003; 99283-25